=== PATIENT | female | born 1985 | race Caucasian/White ===

== ENCOUNTER 2019-01-12 11:46 | Inpatient (IN) ==
[2019-01-12] MEDS ORDERED: BENTYL PO ONE (12:26)
[2019-01-12] MEDS ORDERED: ZOFRAN IV ONE (12:26)
[2019-01-12 12:29] LABS: BILIRUBIN URINE NEGATIVE (NEGATIVE); BLOOD URINE NEGATIVE (NEGATIVE); CLARITY SL. CLOUDY (CLEAR); COLOR YELLOW; GLUCOSE URINE NEGATIVE (NEGATIVE); KETONE URINE TRACE mg/dL (NEGATIVE); LEUKOCYTES URINE TRACE (NEGATIVE); NITRITE URINE NEGATIVE (NEGATIVE); PH URINE 6.5; PROTEIN URINE 1+(30 mg/dL) mg/dL (NEGATIVE); UROBILINOGEN URINE 4 mg/dL
[2019-01-12 12:30] LABS: URINE BACTERIA 3+ /HFP; URINE CAST NONE SEEN /LPF; URINE CRYSTAL NONE SEEN /HPF; URINE EPITHELIAL CELLS >10 /HPF (<10); URINE RBC <10 /HPF (<10); URINE SOURCE CLEAN CATCH; URINE YEAST PRESENT /HPF
--- NOTE | 2019-01-12 12:32 | PROVIDER DOCUMENTATION ---
This chart was entered by Fina Troncoso Scribe, acting as scribe for Pattie Carrillo CRNP. HPI-Abdominal Pain/GI Problem - General Chief Complaint: Abdominal Pain Stated Complaint: ABD PAIN / VOMITING / NAUSEA Time Seen by Provider: 01/12/19 12:08 Source: patient Allergies/Adverse Reactions: Patient Allergies Allergy/AdvReac Type Severity Reaction Status Date / Time sumatriptan [From Imitrex] Allergy ANAPHYLAXIS Verified 05/25/15 12:16 sumatriptan succinate * Allergy ANAPHYLAXIS Verified 05/25/15 12:16 [From Imitrex] morphine AdvReac DIZZINESS Verified 05/25/15 12:16 Home Medications: Home Medication List Medication Instructions Recorded Confirmed Last Taken Type LISINOpril [Prinivil] 10 mg 08/03/14 05/25/15 Unknown History Methocarbamol [Robaxin] 500 mg PO Q6H #30 tablet 05/25/15 Unknown Rx - History of Present Illness-ABD Nature of Presenting Problems: Patient is a 33yo F who presents with complaints of RLQ abdominal pain, nausea, vomiting, and fever (Tmax 101.2) x2 days. Reports she went to [facility] who referred her to ER for appendicitis evaluation. Patient reports she has not vomited since yesterday as she has been taking Phenergan. States last BM was 5 days ago, but reports that is normal for her. Patient reports she has been able to tolerate fluids. Denies diarrhea, dysuria, CP, or SOB. Abdominal Pain Onset Location: reports: RLQ Pain Radiation: reports: no radiation Quality of Pain: reports: cramping Severity in ED: reports: moderate Onset/Duration: reports: 2 days ago Timing: reports: still present, intermittent Activities at Onset: reports: light activity Modifying Factors: improves with: nothing Associated Symptoms: reports: constipation, fever/chills, nausea, vomiting. denies: back/neck pain, chest pain, cough, diarrhea, genitourinary problems, headaches, shortness of breath Last BM: 5 days ago (normal for patient) Dark Stools Present?: reports: none noticed Rectal Bleeding: reports: none # of Diarrhea Episodes: 0 Rectal Pain: reports: none # of Vomiting Episodes: 4 (last emesis yesterday) Emesis Description: reports: clear Bruising or Bleeding Gums?: No Similar Symptoms Previously?: No Recently seen or treated by another doctor?: Yes (referred from ) Review of Systems - Adult - REVIEW OF SYSTEMS - ADULT Constitutional: reports: see HPI, chills, fever Eyes: reports: no symptoms reported Ears, Nose, Mouth & Throat: reports: no symptoms reported Cardiovascular: denies: chest pain, palpitations, syncope Respiratory: denies: cough, pleurisy, shortness of breath, wheezing Gastrointestinal: reports: see HPI, abdominal pain (RLQ), constipation, nausea, vomiting. denies: diarrhea Genitourinary: reports: no symptoms reported. denies: dysuria, urgency Musculoskeletal: denies: back pain, neck pain Integumentary: reports: no symptoms reported Neurological: denies: dizziness/vertigo, headache/migraines Psychiatric: reports: no symptoms reported Endocrine: reports: no symptoms reported Hematologic/Lymphatic: reports: no symptoms reported Allergic/Immunologic: reports: no symptoms reported All Other Systems: Reviewed and Negative Past History - Adult - PAST MEDICAL HISTORY-ADULT Review of Records: reports: Nursing Assessment Review, Medications Reviewed, Social history reviewed & non-contributory. Major Childhood Illnesses: reports: denies history Cardiovascular: reports: HTN Respiratory: reports: denies history Gastrointestinal: reports: denies history Obstetrical/Gynecological: reports: denies history Genitourinary: reports: kidney stones Musculoskeletal: reports: denies history Hand Dominance: Right Handed Neurological: reports: headaches/migraines Endocrine/Immune: reports: denies history Other Conditions: reports: denies history - PRIOR SURGERIES/PROCEDURES Surgical/Procedure History: reports: hysterectomy, tonsillectomy, other (ovary removed) - PRIOR HOSPITALIZATIONS Prior Hospitalizations: reports: none - IMMUNIZATION STATUS Childhood Immunizations: See Nurse Assessment Flu Vaccine: See Nurse Assessment - FAMILY HISTORY Family History: reviewed, not pertinent - SOCIAL HISTORY Smoking: non-smoker Substance Use: alcohol Alcohol Use Frequency: occasionally Living Situation: family Physical Exam-General - PHYSICAL EXAM-ADULT Initial Vital Signs Reviewed: Yes - CONSTITUTIONAL General Appearance: alert, mild distress. negative: lethargic, slow to respond, obtunded - EYES Eyes: PERRL/EOMI, pink conjunctivae. negative: EOM palsy, scleral icterus - HEAD, EARS, NOSE, MOUTH & THROAT HENMT: normocephalic/atraumatic, moist mucous membranes - NECK Neck: non-tender, full range of motion, supple, normal inspection - RESPIRATORY Respiratory: chest non-tender, lungs clear, normal breath sounds, no pleuratic chest pain, no respiratory distress, no accessory muscle use. negative: crackles, rales, rhonchi, stridor, wheezing - CARDIOVASCULAR Cardiovascular: no gallop, tachycardia (119) - GASTROINTESTINAL (ABDOMEN) Abdominal Exam: soft, no organomegaly, abnormal bowel sounds (hypoactive x4), tenderness (RLQ), McBurney's point tenderness, Rovsing's sign. negative: guarding, rigid, rebound - MUSCULOSKELETAL Back Exam: normal inspection, no CVA tenderness, no vertebral tenderness Extremity: normal range of motion, non-tender, normal gait, normal inspection, pelvis stable - SKIN Integumentary: normal color, warm/dry. negative: cyanosis, jaundice, mottled, pallor - NEUROLOGIC Neurologic: grossly normal. negative: abnormal gait, aphasia, EOM palsy - PSYCHIATRIC Psych/Mental Status: normal mood/affect, normal thought content, normal thought process, oriented x 3 Progress - PLAN OF CARE/RESULTS Progress/Plan/Lab Results: Vital Signs - 8 hr 01/12/19 11:50 Temperature 99.7 F H Pulse Rate 119 H Respiratory Rate 18 Blood Pressure 112/72 O2 Sat by Pulse Oximetry 100 Orders Category Date Time Status AMYLASE [CHEM] Stat Lab 01/12/19 11:56 Ordered CBC WITH DIFF [HEME] Stat Lab 01/12/19 11:56 Ordered COMPREHENSIVE METABOLIC PANEL [CHEM] Stat Lab 01/12/19 11:56 Uncollected LIPASE [CHEM] Stat Lab 01/12/19 11:[address] W/POSS RFLX CULT [URINALYSIS] Stat Lab 01/12/19 11:56 Uncollected Lab results, imaging results, and plan of care discussed with patient who agrees with and verbalizes understanding. Result Diagrams: 01/12/19 13:15 01/12/19 13:15 - CT/MRI 1 CT Study: Abdomen, Pelvis Impression: See EMR Report ([facility] - [address], [address], [place] [address] [facility] - [address] [place] [address] Department of Imaging Patient: ENZO ZHOU Date: 01/12/19MR#: [id number] : 1985ADM Status: [facility]#: [id number] Age/Sex: 33/FRoom/Bed: Loc: P.ED Ordering Physician: Pattie Davila Family Physician: None,PCP Reason for Procedure: RLQ abdominal pain; fever; n/v Signed EXAM: CT ABD/PELVIS W/IV CONT ONLY HISTORY: RLQ abdominal pain; fever; n/v TECHNIQUE: This exam was performed using automated exposure control, adjustment of mA or kV according to patient size, and/or use of iterative reconstruction technique. COMPARISON: 05/25/2015. FINDINGS: The appendix is distended and ring-enhancing with moderate periappendiceal inflammatory change and periappendiceal fluid compatible with acute appendicitis. A definitive abscess is not identified though evaluation is limited by lack of enteric contrast. There is trace free fluid within the pelvis. No evidence for bowel obstruction. There is diverticulosis. There is no evidence for diverticulitis. The liver, spleen, kidneys, pancreas, and adrenal glands are unremarkable. There are bilateral breast implants. Abdominal aorta is of normal caliber. There are prominent right lower quadrant lymph nodes. Status post hysterectomy. IMPRESSION: Acute appendicitis. Electronically signed by Anita Parry 01/12/2019 2:47 PM 01/12/19 1447 Interpreting Physician: Anita Parry MD Dictated Date/Time: 01/12/19 1441 cc: Pattie Carrillo; None,PCP) - CONSULTS/PCP/HOSPITALIST Notification #1 *Consult/PCP/Hospitalist*: La Surgeon Time Discussed: 14:54 Reason/Comments: Acute appendicitis Consult Disposition: Admit (Transfer to for surgery; per Dr. Tovar "appendix about to rupture") #2 Consult: Donis Muhammad Time Discussed: 15:03 Reason/Comments: Acute appendicitis Consult Disposition: Admit (Admit to [facility]; consult hospitalist if needed) Departure - Departure Date of Disposition Decision: 01/12/19 Time of Disposition Decision: 14:55 DIAGNOSIS: Acute appendicitis Qualifiers: Acute appendicitis type: unspecified acute appendicitis type Qualified Code(s): K35.80 - Unspecified acute appendicitis Abdominal pain Qualifiers: Abdominal location: right lower quadrant Qualified Code(s): R10.31 - Right lower quadrant pain Nausea and vomiting Qualifiers: Vomiting type: unspecified Vomiting Intractability: non-intractable Qualified Code(s): R11.2 - Nausea with vomiting, unspecified UTI (urinary tract infection) Qualifiers: Urinary tract infection type: acute cystitis Hematuria presence: without hematuria Qualified Code(s): N30.00 - Acute cystitis without hematuria Disposition: ADMITTED INPATIENT 09 Certified Medical Emergency: Emergent Condition: Fair - Critical Care Note This patient required my direct & personal management of CC.: No Attestation - Physician/ JAMIL Attestation Patient care was provided by Advanced Practice Provider:: Yes Advanced Practice Provider:: Pattie Carrillo Advanced Practice Provider documentation review:: The Mid-level provider documentation, treatment plan and medical decision making was reviewed by the physician who agrees with all treatment and medical decision making by the MLP. The physician spent face to face time with patient:: No Advanced Practice Provider documentation review:: Supervising physician onsite and consulted in the evaluation and care of this patient. The physician did not have a face to face encounter with the patient. This chart was documented by the indicated scribe, (Fina Troncoso Scribe) and accurately reflects the services I performed and decisions made by me, Pattie Carrillo CRNP, as attested by the provider's signature.
[2019-01-12 13:50] LABS: AGAP 12; ALKALINE PHOSPHATASE 72 U/L (32-104); BUN 12 mg/dL (8-22); CALCIUM 9.3 mg/dL (8.8-10.2); CHLORIDE 100 mmol/L (98-107); COSMO 278; CREATININE 0.8 mg/dL (0.5-0.9); ESTIMATED GFR > 60; GLUCOSE 110 mg/dL (70-104); GOT 23 U/L (10-30); GPT 22 U/L (10-36); LIPASE 15 U/L (13-60); POTASSIUM 3.9 mmol/L (3.5-5.1); SODIUM 139 mmol/L (136-145); TCO2 27 mmol/L (25-35); TOTAL PROTEIN 6.3 g/dL (6.3-8.3)
[2019-01-12] MEDS ORDERED: TYLENOL PO ONE (14:01)
[2019-01-12 14:06] LABS: BASO# 0.01 X1000 (0.0-0.2); BASO% 0.1 % (0.0-0.8); EOS# 0.01 X1000 (0.0-0.7); EOS% 0.1 % (0.0-10.0); HEMATOCRIT 40.1 % (37.0-47.0); IMM GRAN# 0.04 X1000 (0.0-0.04); IMM GRAN% 0.3 % (0.0-0.5); LYMPH# 0.52 X1000 (1.2-3.4); LYMPH% 4.1 % (20.5-51.1); MCH 28.4 PG (27-31); MCHC 32.4 g/dL (33-37); MCV 87.7 FL (81-99); MONO# 0.75 X1000 (0.11-0.59); MONO% 5.9 % (1.7-9.3); MPV 10.5 FL (7.4-10.4); NEUT# 11.46 X1000 (1.4-6.5); NEUT% 89.5 % (42.2-75.2); PLT 156 X1000 (130-400); RBC 4.57 XMIL (4.2-5.4); RDW 12.2 % (11.5-14.5); WBC 12.79 X1000 (4.8-10.8)
[2019-01-12 14:39] LABS: BANDS 2 % (0-1); LYMPHS 4 % (21-51); MONO 3 % (1-9); SEGS 91 % (42-75); STOMATOCYTES 1+
--- NOTE | 2019-01-12 14:50 | Diag Imaging Result Doc PS360 ---
EXAM: CT ABD/PELVIS W/IV CONT ONLY HISTORY: RLQ abdominal pain; fever; n/v TECHNIQUE: This exam was performed using automated exposure control, adjustment of mA or kV according to patient size, and/or use of iterative reconstruction technique. COMPARISON: 05/25/2015. FINDINGS: The appendix is distended and ring-enhancing with moderate periappendiceal inflammatory change and periappendiceal fluid compatible with acute appendicitis. A definitive abscess is not identified though evaluation is limited by lack of enteric contrast. There is trace free fluid within the pelvis. No evidence for bowel obstruction. There is diverticulosis. There is no evidence for diverticulitis. The liver, spleen, kidneys, pancreas, and adrenal glands are unremarkable. There are bilateral breast implants. Abdominal aorta is of normal caliber. There are prominent right lower quadrant lymph nodes. Status post hysterectomy. IMPRESSION: Acute appendicitis. Electronically signed by Anita Parry 01/12/2019 2:47 PM
[2019-01-12] MEDS ORDERED: ZOSYN 3.375 GM in NS 50 ML IV ONE (14:55)
[2019-01-12] MEDS ORDERED: NS 1,000 ML IV ONE (15:00)
[2019-01-12] MEDS ORDERED: DILAUDID IV ONE (15:04)
[2019-01-12] MEDS ORDERED: LR 1,000 ML ONE ×2 (15:51→16:29)
[2019-01-12] MEDS ORDERED: SENSORCAINE 0.5%-EPI 1:200,000 ONE (15:52)
[2019-01-12] MEDS ORDERED: DIPRIVAN 1% ONE (15:52)
[2019-01-12] MEDS ORDERED: QUELICIN (DOSE) ONE (15:54)
[2019-01-12] MEDS ORDERED: XYLOCAINE-MPF 2% ONE (15:54)
[2019-01-12] MEDS ORDERED: FENTANYL ONE (16:03)
[2019-01-12] MEDS ORDERED: DILAUDID ONE (16:29)
[2019-01-12] MEDS ORDERED: ZOFRAN ONE (16:36)
[2019-01-12] MEDS ORDERED: DECADRON ONE (16:36)
[2019-01-12] MEDS ORDERED: TORADOL ONE (16:36)
[2019-01-12] MEDS ORDERED: ZEMURON ONE (16:40)
[2019-01-12] MEDS ORDERED: ROBINUL ONE (17:05)
[2019-01-12] MEDS: DILAUDID ONE ×2 (17:23→17:28)
[2019-01-12] MEDS ORDERED: NORCO-10 ONE (17:37)
[2019-01-12] MEDS ORDERED: ZOFRAN IV PRN (18:59)
--- NOTE | 2019-01-12 19:51 | OPERATIVE NOTE ---
PROCEDURE DATE: 01/12/2019 PREOPERATIVE DIAGNOSIS: Appendicitis. POSTOPERATIVE DIAGNOSIS: Appendicitis. PROCEDURE: Laparoscopic appendectomy. SURGEON: Carlos Tovar MD. REPRESENTATIVE PERSONAL SERVICE: None. ANESTHESIA: General endotracheal. OPERATIVE FINDINGS: Appendicitis. COMPLICATIONS: None at the time of this dictation. ESTIMATED BLOOD LOSS: 10 mL. SPECIMEN REMOVED: Appendix. BRIEF HISTORY: A 33-year-old female presenting with a couple day history of right lower quadrant pain. CT scan and exam are consistent with appendicitis. It is felt she would benefit from appendectomy. The risks, benefits, alternatives of procedure were discussed. All questions answered. DESCRIPTION OF PROCEDURE: After informed consent was obtained, patient was brought to the operative theatre, transferred to the operating table and placed in supine position. General endotracheal anesthesia was then performed without complication. A formal time-out was then performed confirming patient and procedure. All in agreement at that time. Attention was given to the abdomen. An infraumbilical incision was made through which using Optiview technique we inserted a 12 mm trocar connected to insufflation. Pneumoperitoneum was achieved. Under direct visualization, we placed 2 more trocars, 1 in the right upper quadrant, 1 in left lower quadrant. Using these, the appendix was identified. It was stuck to the retroperitoneum, bluntly dissected out and elevated. I made a window in the base of the mesoappendix and fired a stapler across the mesoappendix. We then fired another stapler across the base of the appendix with good results. There was no drainage of stool and no succus. No bleeding, and it appeared that we came across the junction of the cecum and the appendix. We irrigated out the abdomen until suction fluid was clear. We placed the appendix in an EndoCatch and brought it out through the infraumbilical incision. We then closed the infraumbilical incision with 0 Vicryl on a Kee-Christophe device, removed all trocars, disconnected insufflation and pneumoperitoneum was released. All skin incisions were closed with 4-0 Monocryl. The patient tolerated the procedure well, and she will be transferred to the floor to be observed overnight. cc: Carlos Tovar MD
[2019-01-12] MEDS: NORCO-10 PO PRN (21:53)
[2019-01-12] MEDS: PERIDEX MT SCH (21:53)
--- NOTE | 2019-01-13 06:32 | GENERAL SURGERY PROGRESS NOTE ---
DATE: 01/13/2019 Patient doing well. She has been hemodynamically stable. Her pain is much improved. She did not have perforated appendicitis. I think from a surgical point of view, she can be discharged home. We will make arrangements. cc: Carlos Tovar MD
[2019-01-13 08:29] VITALS: BP 110/71
[2019-01-13] MEDS: NORCO-10 PO PRN (08:34)
[2019-01-13] MEDS: PERIDEX MT SCH (12:26)
== END 2019-01-13 11:12 | disposition home or self-care (01) | DRG 343 ==
LOC: P.ED 11:46 → SURHOLD 15:15 → 4N 17:58
PROVIDERS: ADMIT Surgery; ATTEND Surgery